=== PATIENT | female | born 2000 | race African-American/Black ===

== ENCOUNTER 2023-04-17 14:36 | Emergency (ER) | payer SELFPAY ==
[~2023-04-17] VITALS: Ht 152.4 cm; Wt 49.9 kg
[2023-04-17 14:50] VITALS: O2SAT 100
[2023-04-17] MEDS ORDERED: METOCLOPRAMIDE HCL 10MG/2ML VIAL IM ONE (15:15)
[2023-04-17] MEDS ORDERED: DIPHENHYDRAMINE 50MG/ML VIAL IM ONE (15:15)
[2023-04-17] MEDS ORDERED: KETOROLAC 30MG/ML VIAL IM ONE (15:15)
[2023-04-17] MEDS ORDERED: LIDO700A15 TP (16:44)
[2023-04-17] MEDS ORDERED: NAPR-1176 MT (16:44)
[2023-04-17 18:27] VITALS: BP 114/65; PULSE 61; RESP 16; TEMP 98.7
== END 2023-04-17 18:28 | disposition home or self-care (01) ==
LOC: ER 15:23
DX: S00.93XA Contusion of unspecified part of head, initial encounter (principal); X58.XXXA Exposure to other specified factors, initial encounter; Y93.89 Activity, other specified; Y92.89 Other specified places as the place of occurrence of the external cause; Y99.8 Other external cause status
CPT/HCPCS: 81025; 96372; 99284; J1200; J1885; J2765; Z7610